=== PATIENT | male | born 1970 | race Caucasian/White ===

== ENCOUNTER 2017-04-08 13:07 | Emergency (ER) | payer OTHER ==
[~2017-04-08] VITALS: Ht 175.3 cm; Wt 93.0 kg
[2017-04-08 14:05] VITALS: Ht 175.3 cm; Wt 93.0 kg
[2017-04-08 15:42] VITALS: BP 128/71
== END 2017-04-08 15:42 | disposition home or self-care (01) ==
LOC: ED 13:07
DX: B34.9 Viral infection, unspecified (principal); J11.1 Influenza due to unidentified influenza virus with other respiratory manifestations

== ENCOUNTER 2017-04-27 15:38 | Emergency (ER) | payer OTHER ==
[~2017-04-27] VITALS: Ht 170.2 cm; Wt 94.3 kg
[2017-04-28 00:23] VITALS: BP 123/78
== END 2017-04-27 21:00 | disposition home or self-care (01) ==
LOC: ED 15:38
DX: M54.40 Lumbago with sciatica, unspecified side (principal)
CPT/HCPCS: J1885

== ENCOUNTER 2017-12-21 20:25 | Emergency (ER) | payer OTHER ==
[~2017-12-21] VITALS: Ht 175.3 cm; Wt 99.4 kg
[2017-12-21 22:05] VITALS: BP 128/69
== END 2017-12-21 22:05 | disposition home or self-care (01) ==
LOC: ED 20:25
DX: S46.912A Strain of unspecified muscle, fascia and tendon at shoulder and upper arm level, left arm, initial encounter (principal); S16.1XXA Strain of muscle, fascia and tendon at neck level, initial encounter; S09.90XA Unspecified injury of head, initial encounter; R07.81 Pleurodynia; F17.210 Nicotine dependence, cigarettes, uncomplicated; W11.XXXA Fall on and from ladder, initial encounter; Y93.89 Activity, other specified; Y92.89 Other specified places as the place of occurrence of the external cause; Y99.8 Other external cause status
CPT/HCPCS: J1885

== ENCOUNTER 2018-08-03 11:53 | Emergency (ER) | payer OTHER ==
[~2018-08-03] VITALS: Ht 175.3 cm; Wt 96.2 kg
[2018-08-03 12:02] VITALS: Ht 175.3 cm; Wt 96.2 kg
[2018-08-03 14:24] VITALS: BP 133/92
== END 2018-08-03 14:24 | disposition home or self-care (01) ==
LOC: ED 11:53
DX: S05.01XA Injury of conjunctiva and corneal abrasion without foreign body, right eye, initial encounter (principal); M79.651 Pain in right thigh; R51 Headache; W20.8XXA Other cause of strike by thrown, projected or falling object, initial encounter; Y93.89 Activity, other specified; Y92.89 Other specified places as the place of occurrence of the external cause; Y99.8 Other external cause status

== ENCOUNTER 2019-01-30 12:28 | Emergency (ER) | payer OTHER ==
[~2019-01-30] VITALS: Ht 175.3 cm; Wt 96.6 kg
[2019-01-30 12:50] VITALS: BP 117/78; Ht 175.3 cm; Wt 96.6 kg
== END 2019-01-30 14:11 | disposition home or self-care (01) ==
LOC: ED 12:28
DX: S91.331A Puncture wound without foreign body, right foot, initial encounter (principal); W22.8XXA Striking against or struck by other objects, initial encounter; Y93.89 Activity, other specified; Y92.89 Other specified places as the place of occurrence of the external cause; Y99.8 Other external cause status
CPT/HCPCS: 90715; J1885

== ENCOUNTER 2019-07-06 14:33 | Emergency (ER) | payer OTHER ==
[~2019-07-06] VITALS: Ht 175.3 cm; Wt 95.3 kg
[2019-07-06 14:38] VITALS: Ht 175.3 cm; Wt 95.3 kg
[2019-07-06 16:15] VITALS: BP 142/75
== END 2019-07-06 16:15 | disposition home or self-care (01) ==
LOC: ED 14:33
DX: S93.402A Sprain of unspecified ligament of left ankle, initial encounter (principal); X58.XXXA Exposure to other specified factors, initial encounter; Y93.89 Activity, other specified; Y92.89 Other specified places as the place of occurrence of the external cause; Y99.8 Other external cause status
CPT/HCPCS: J1885; Q0092

== ENCOUNTER 2020-01-26 11:10 | Emergency (ER) | payer OTHER ==
[~2020-01-26] VITALS: Ht 175.3 cm; Wt 93.4 kg
[2020-01-26 11:18] VITALS: Ht 175.3 cm; Wt 93.4 kg
[2020-01-26 13:19] VITALS: BP 133/83
== END 2020-01-26 13:19 | disposition home or self-care (01) ==
LOC: ED 11:10
DX: M54.40 Lumbago with sciatica, unspecified side (principal)
CPT/HCPCS: J1885

== ENCOUNTER 2020-01-29 00:56 | Emergency (ER) | payer OTHER ==
[~2020-01-29] VITALS: Ht 175.3 cm; Wt 95.9 kg
[2020-01-29 01:04] VITALS: Ht 175.3 cm; Wt 95.9 kg
[2020-01-29 02:01] LABS: UA SPECIFIC GRAVITY 1.025 (1.005-1.035); microscopic required? YES; urine erythrocyte TRACE (NEGATIVE)
[2020-01-29 02:02] LABS: BASOPHIL % 0.7 % (0-2); PLATELET COUNT 270 x10^3mcL (130-400)
[2020-01-29 02:14] LABS: CARBON DIOXIDE 24.1 mmol/L (21-32); CHLORIDE SERUM 104 mmol/L (98-107); GFR1 > 60 mL/min; GLUCOSE SERUM 127 mg/dL (74-106); SODIUM SERUM 137 mmol/L (136-145)
[2020-01-29 02:19] LABS: ALKALINE PHOSPHATASE 74 U/L (46-116); ALT/SGPT 67 U/L (16-63); AST/SGOT 51 U/L (15-37); BILIRUBIN TOTAL 0.38 mg/dL (0.20-1.00); LIPASE 720 IU/L (73-393); TOTAL PROTEIN, SERUM 6.7 g/dL (6.4-8.2)
[2020-01-29 02:20] LABS: ALBUMIN 3.1 g/dL (3.4-5.0); AMYLASE 116 U/L (25-115)
[2020-01-29 04:27] VITALS: BP 138/90
== END 2020-01-29 04:27 | disposition home or self-care (01) ==
LOC: ED 00:56
PROVIDERS: Emergency Medicine
DX: K59.00 Constipation, unspecified (principal)
CPT/HCPCS: J1885; J7030